=== PATIENT | female | born 1960 | race Caucasian/White ===

== ENCOUNTER 2023-07-31 10:21 | Day surgery (SDC) | payer OTHER ==
[~2023-07-31] VITALS: Ht 152.4 cm; Wt 72.6 kg
[2023-07-31] MEDS ORDERED: fentaNYL citrate 0.05 MG/ML VIAL ONE (11:16)
[2023-07-31] MEDS ORDERED: MIDAZOLAM 2 MG/2 ML VIAL ONE (11:16)
[2023-07-31] MEDS: MIDAZOLAM 2 MG/2 ML VIAL IVP ONE (11:37)
[2023-07-31] MEDS: fentaNYL citrate 0.05 MG/ML VIAL IVP ONE (11:41)
== END 2023-07-31 13:08 | disposition home or self-care (01) ==
LOC: MDS 10:21 → MMU 10:23 → MDS 13:08
PROVIDERS: ATTEND Internal Medicine Gastroenterology
DX: R13.10 Dysphagia, unspecified (principal); K22.10 Ulcer of esophagus without bleeding; K44.9 Diaphragmatic hernia without obstruction or gangrene; M19.90 Unspecified osteoarthritis, unspecified site; Z80.0 Family history of malignant neoplasm of digestive organs; Z98.890 Other specified postprocedural states
CPT/HCPCS: 36415; 43239; 86677; J2250; J3010